=== PATIENT | female | born 1985 | race African-American/Black ===

== ENCOUNTER 2018-02-28 04:47 | Emergency (ER) | payer OTHER ==
[2018-02-28 04:56] VITALS: Ht 165.1 cm
[2018-02-28 09:53] VITALS: BP 120/86
== END 2018-02-28 09:53 | disposition home or self-care (01) ==
LOC: ED 04:47
DX: S93.502A Unspecified sprain of left great toe, initial encounter (principal); X50.1XXA Overexertion from prolonged static or awkward postures, initial encounter; Y93.89 Activity, other specified; Y92.89 Other specified places as the place of occurrence of the external cause; Y99.8 Other external cause status
CPT/HCPCS: J1885

== ENCOUNTER 2019-01-17 14:29 | Emergency (ER) | payer OTHER ==
[~2019-01-17] VITALS: Ht 165.1 cm; Wt 78.9 kg
[2019-01-17 14:33] VITALS: Ht 165.1 cm; Wt 78.9 kg
[2019-01-17 15:14] LABS: BASOPHIL % 0.1 % (0-2); PLATELET COUNT 256 x10^3mcL (130-400)
[2019-01-17 15:17] LABS: RED CELL DISTRIBUTION WIDTH 19.9 % (11.5-14.5)
[2019-01-17 15:26] LABS: CALCIUM 8.5 mg/dL (8.5-10.1); CARBON DIOXIDE 27.4 mmol/L (21-32); CHLORIDE SERUM 104 mmol/L (98-107); CREATININE SERUM 0.8 mg/dL (0.6-1.0); GFR1 > 60 mL/min; GLUCOSE SERUM 96 mg/dL (74-106); POTASSIUM SERUM 3.9 mmol/L (3.5-5.1); SODIUM SERUM 139 mmol/L (136-145)
[2019-01-17 15:37] LABS: ALBUMIN 3.7 g/dL (3.4-5.0); ALKALINE PHOSPHATASE 68 U/L (46-116); ALT/SGPT 22 U/L (14-59); AST/SGOT 17 U/L (15-37); BILIRUBIN TOTAL 0.82 mg/dL (0.20-1.00); LIPASE 76 IU/L (73-393); TOTAL PROTEIN, SERUM 7.8 g/dL (6.4-8.2)
[2019-01-17 17:05] VITALS: BP 127/81
== END 2019-01-17 17:05 | disposition home or self-care (01) ==
LOC: ED 14:29
PROVIDERS: Emergency Medicine
DX: A08.4 Viral intestinal infection, unspecified (principal); Z98.890 Other specified postprocedural states
CPT/HCPCS: J2405; J7030

== ENCOUNTER 2019-08-25 17:55 | Emergency (ER) | payer OTHER ==
[~2019-08-25] VITALS: Ht 165.1 cm; Wt 78.0 kg
[2019-08-25 18:11] VITALS: Ht 165.1 cm; Wt 78.0 kg
[2019-08-25 20:00] VITALS: BP 131/89
== END 2019-08-25 19:52 | disposition home or self-care (01) ==
LOC: ED 17:55
DX: U07.1 COVID-19 (principal); R51 Headache
CPT/HCPCS: J1885; U0003-CS